=== PATIENT | male | born 1935 | race Hispanic/Latino ===

== ENCOUNTER → 2019-12-23 | Day surgery (SDC) | payer MEDICARE ==
--- NOTE | 2019-12-17 14:20 | Diagnostic Imaging Report ---
X-ray chest PA and lateral Comparison: None. History: Preop Findings: Central airways unremarkable. Heart size normal. Atherosclerotic aorta. No pleural effusion or pneumothorax. No definite focal lung infiltrates or nodules. Visualized skeletal structures show no acute changes. Degenerative changes of the left shoulder are seen. Upper abdomen unremarkable. Impression: No acute cardiopulmonary disease. Signed by: Alexi Carreon MD on 12/17/2019 2:16 PM
[2019-12-17 14:37] LABS: BASOPHILS # (AUTO) 0.1 (0.0-0.1); BASOPHILS % 0.7 % (0.0-1.0); EOSINOPHILS # (AUTO) 0.1 (0.0-0.4); EOSINOPHILS % 1.3 % (0.0-6.0); HEMATOCRIT 46.4 % (38.2-49.6); HEMOGLOBIN 15.9 g/dL (14.0-18.0); LYMPHOCYTES # (AUTO) 1.7 (1.0-3.2); LYMPHOCYTES % 24.6 % (18.0-39.1); MEAN CORPUSCULAR HEMOGLOBIN 33.1 pg (28-32); MEAN CORPUSCULAR HGB CONC 34.3 g/dL (31-35); MEAN CORPUSCULAR VOLUME 96.7 fL (81-99); MONOCYTES # (AUTO) 0.6 (0.2-0.8); NEUTROPHILS # (AUTO) 4.5 (2.1-6.9); PLATELET COUNT 279 x10e3/uL (140-360); RED CELL DISTRIBUTION WIDTH 13.2 % (11.7-14.4)
[2019-12-17 14:53] LABS: PROTHROMBIN TIME 13.8 seconds (11.9-14.5)
[2019-12-17 14:54] LABS: PARTIAL THROMBOPLASTIN TIME 25.5 seconds (23.8-35.5)
[2019-12-17 14:59] LABS: ANION GAP 16.4 mmol/L (8-16); BLOOD UREA NITROGEN 23 mg/dL (7-26); BUN/CREATININE RATIO 25 (6-25); CALCIUM 9.2 mg/dL (8.4-10.2); CARBON DIOXIDE 22 mmol/L (22-29); CHLORIDE 105 mmol/L (98-107); CREATININE, SERUM 0.91 mg/dL (0.72-1.25); EST GLOMERULAR FILTRATION RATE > 60 ML/MIN (60-); GLUCOSE 129 mg/dL (74-118); POTASSIUM 4.4 mmol/L (3.5-5.1); SODIUM 139 mmol/L (136-145)
[~2019-12-23] MED LIST: ACETAMINOPHEN 1000 MG/100 ML IV ONE; ASPIR 8181 MG PO; BUPIVACAINE HCL 0.5% INJ 30 ML VIAL INJ ONE; CEFAZOLIN SOD 1 GM/NS 50ML 100 ML IV ONE; CLOPIDOGREL75 MG PO; CYMBALTA30 MG PO; DEXAMETHASONE SOD PHOS INJ 4 MG/ML VIAL ONE; EPHEDRINE SULFATE INJ 50 MG/ML VIAL ONE; EPINEPHRINE HCL 1:1000 1ML 1 MG/ML AMP ONE; FLOMAX0.4 MG PO; JANUVIA100 MG PO; KETOROLAC TROMETHAMINE 30 MG/ML VIAL ONE; LIDOCAINE HCL 2% LOCAL INJ 5 ML SDV VIAL INJ ONE; LISINOPRIL10 MG PO; ONDANSETRON HCL INJ 2MG/ML 2ML 2 MG/ML VIAL ONE; PHENYLEPHRINE HCL 1% 10 MG/ML VIAL ONE; PRAVACHOL40 MG PO; PROPOFOL IV EMULSION 10 MG/ML 20 ML VIAL ONE; ROCURONIUM BROMIDE 10 MG/ML 5ML VIAL IV ONE; SEVOFLURANE INHAL SOLN 250 ML PEN BTL ONE; SUCCINYLCHOLINE CHLORIDE 20 MG/ML 10ML VIAL ONE
[2019-12-23 14:11] VITALS: BP 99/53
--- NOTE | 2019-12-23 19:21 | Operative Report ---
DATE OF PROCEDURE: 12/23/2019 SURGEON: JEANNINE DRUMMOND MD HISTORY: Mr. Lopez is an 84-year-old male with ongoing pain, involving his left shoulder secondary to a massive rotatory cuff tear of the left shoulder as well as proximal biceps rupture. The patient was considered for diagnostic arthroscopy of his left shoulder with risks and benefits consisting but not limited to the following infection, blood loss, nerve, vessel or tendon injury, DVT, ongoing pain. The patient was seen and identified in preoperative holding area. The left shoulder was marked by myself and the patient agreed. The patient was then brought back to the operative suite, placed supine on the operative table. The patient received a preoperative regional block per anesthesia. Time out was taken for Mr. Haile Lopez for a left shoulder diagnostic arthroscopy. All were in agreement including nursing staff, anesthesia, and myself. The patient was then given a successful general intubation anesthetic and then placed in a beach chair position with the left shoulder fully exposed. The shoulder was then infiltrated with 30 mL saline. A 15-worthington Bryn blade was then used to make the posterior portal incision. Blunt trocar was inserted. Upon examination of the anterior shoulder, the patient had massive retractive rotator cuff tear of all 4 tendons noted. The patient had complete rupture of the biceps tendon with a remnant possible biceps tendon stump noted. The patient also found to have degenerative type 3 labral tear noted with marked changes. He had multiple loose bodies noted throughout. At upper extremity, two anterior working portals were made to allow assistance on removal of the rising loose bodies. They were large as 6 to 7 mm. The patient has significant arthritic changes to the humeral head as well as the glenoid. There was marked . After removal of the rising loose bodies about medial and lateral and posterior portals, arthroscopic labral debridement was carried out, debriding the type 3 labral tear noted on AC joint was noted and the acromion spur was then taken down and arthroscopic subacromial decompression was carried out using arthroscopic shaver and a 4.5 nicole. Attention then turned to the AC joint and arthroscopic distal clavicle dissection was carried out, removing approximately 1 cm of the distal clavicle in conjunction with degenerative AC meniscus. Once the arthroscopic acromial decompression and arthroscopic clavicle dissection was completed, the attention was then redirected back to the posterior compartment. The patient again has significant villonodular synovitis of the posterior compartment, similar to what was found anteriorly. A synovectomy was carried out removing the villonodular synovitis similar to the anterior compartment. Again, the rotator tear identified. A small median incision was made over the AC joint. The anterior and reapproximation. I was able to retrieve the distal biceps tendon stump. On the first time, a proximal biceps tenodesis was carried out of the proximal biceps tendon next to the adjacent soft tissue and to bony tunnels into the bicipital groove with #1 Ethibond suture. Attention was then turned to rotator cuff tendon once skin was markedly retracted. I was able to use an allis clamp to undermine the tissue and bring the rotator cuff tendon as close back to as its original atrophy. I went ahead placing two Mitek 6.5 helix anchors after the initial punch was completed. I was able to pass the 4 pairs of suture limbs to the rotator cuff tendon and a reconstructive repair of the rotator cuff tendons included the supraspinatus, infraspinatus, and teres and part of the subscapularis was completed. Reattaching the rotator cuff tendons back to the original insertion as close as possible. I was able to obtain another 80% to 90% coverage of the humeral head. Upon range of motion testing, the repair was found to be very stable. Copious irrigation was carried out throughout entire joint. First, second, and final counts found to be correct. Deep layer closure will be done beginning with 1 Ethibond, 0 Vicryl, 2-0 Vicryl. Skin reapproximated with joyce and the patient was then placed shoulder mobilizer was applied. The patient was successfully extubated and transferred to PACU in stable condition. PREOPERATIVE DIAGNOSES: 1. Left shoulder labral tear. 2. Left total rotator cuff tear. 3. Left shoulder joint impingement, AC arthrosis. POSTOPERATIVE DIAGNOSIS: 1. Left shoulder type 3 labral tear. 2. Villonodular synovitis of the left shoulder. 3. Multiple arising of loosing bodies on left shoulder. 4. Possible biceps tendon rupture. 5. Left shoulder impingement AC arthrosis. 6. Massive rotator cuff tear of the left shoulder of supraspinatus subscapularis and teres minor. PROCEDURES: 1. Diagnostic arthroscopy of the left shoulder with type 3 labral debridement. 2. Arthroscopic left shoulder synovitis for villonodular synovitis, synovectomy was completed. 3. Arthroscopic subacromial decompression, i.e., acromioplasty. 4. Arthroscopic distal clavicle resection, i.e., Juan procedure. 5. Open possible biceps tenodesis. 6. Mini open left shoulder rotator cuff repair with 2 Mitek 6.5 Healix anchors. ANESTHESIA: Regional block . ESTIMATED BLOOD LOSS: Less than 10 to 20 mL. SPECIMENS: Bone and soft tissue. COMPLICATIONS: None. CONDITION: Stable to PACU. The patient is seen in PACU. Dressing is clean and dry. Capillary refills are brisk. The pain is well controlled. The patient discharged home with Keflex as well as Atkinson. He was asked to follow up with me in [facility] in 12-14 days. He is to wear the shoulder immobilizer all time other than when bathing and showering. Continue with aggressive icing and activity modification. MD PATRICIA TYLER/VIDA /[id number]
== END | disposition home or self-care (01) ==
LOC: OR 05:55
PROVIDERS: ATTEND Orthopaedic Surgery
DX: S43.422A Sprain of left rotator cuff capsule, initial encounter (principal); S43.432A Superior glenoid labrum lesion of left shoulder, initial encounter; S43.92XA Sprain of unspecified parts of left shoulder girdle, initial encounter; S46.212A Strain of muscle, fascia and tendon of other parts of biceps, left arm, initial encounter; M19.012 Primary osteoarthritis, left shoulder; M24.012 Loose body in left shoulder; M77.9 Enthesopathy, unspecified; I10 Essential (primary) hypertension; E11.9 Type 2 diabetes mellitus without complications; I25.10 Atherosclerotic heart disease of native coronary artery without angina pectoris; X58.XXXA Exposure to other specified factors, initial encounter; Z01.810 Encounter for preprocedural cardiovascular examination; Z01.812 Encounter for preprocedural laboratory examination; Z01.818 Encounter for other preprocedural examination; Z11.59 Encounter for screening for other viral diseases; Z79.02 Long term (current) use of antithrombotics/antiplatelets; Z79.82 Long term (current) use of aspirin; Z79.84 Long term (current) use of oral hypoglycemic drugs; Z95.5 Presence of coronary angioplasty implant and graft
CPT/HCPCS: 23410; 23430; 29820; 29824; 36415; 71046; 80048; 85025; 85610; 85730; 93005; C1713; J0131; J0171; J0330; J0690; J1100; J1885; J2001; J2370; J2405; J2704; U0002